=== PATIENT | male | born 1935 | race Caucasian/White ===

== ENCOUNTER → 2017-09-02 07:27 | Outpatient (CLI) | payer MEDICARE, OTHER ==
[~2017-09-02 07:27] MED LIST: BAYER CHEWABLE81 MG PO; CELEBREX200 MG PO; FIBERCON625 MG PO; PLAVIX75 MG PO; VERELAN180 MG PO
== END | disposition home or self-care (01) ==
LOC: D.NM 07:27
DX: C61 Malignant neoplasm of prostate (principal); R97.20 Elevated prostate specific antigen [PSA]

== ENCOUNTER 2017-10-18 10:56 | Outpatient (CLI) | payer MEDICARE, OTHER ==
[~2017-10-18] VITALS: Ht 193 cm; Wt 111.8 kg
--- NOTE | ~2017-10-18 | HEMODYNAMI ---
PATIENT:ROMEL MORAN MEDICAL RECORD: [id number] : 37 LOCATION:[facility] ADMISSION DATE: 10/18/17 Generatedon:10/18/201713:45 Patient name: ROMEL MORAN Patient #: [id number] SSN: [id number] : 1935 Date of study: 10/18/2017 Page: Of Hemodynamic Procedure Report Patient Data Patient Demographics Procedure consent was obtained First Name: ROMEL Gender: Male Last Name: DEAN : 1935 Middle Initial: E Age: 82 year(s) Patient #: [id number] Race: SSN: [id number] Additional ID: [id number] Contact details Address: [facility] [address] State: [place] City: [place] Zip code: [address] Admission Admission Data Admission Date: 10/18/2017 Admission Time: 10:56 Arrival Date: 10/18/2017 Arrival Time: 13:00 Admit Source: Other Insurance Payor: Medicare Height (in.): 76 BSA: 2.42 (m2) Height (cm.): 193.04 BMI: 29.94 (kg/m2) Weight (lbs.): 246 Weight (kg.): 111.58 Lab Results Lab Result Date: 10/18/2017 Lab Result Time: 0:00 Biochemistry Name Units Result Min Max BUN mg/dl 25 --(----)-* 7 18 Creatinine mg/dl 1.1 --(--*-)-- 0.6 1.3 CBC Name Units Result Min Max Hemoglobin g/dl 17 --(---*)-- 13.5 17.5 Procedure Procedure Types Cath Procedure Diagnostic Procedure [facility] w/Coronaries PCI Procedure Coronary Stent Coronary Stent Initial Miscellaneous Procedures Moderate Sedation up to 45 minutes Procedure Description Procedure Date Procedure Date: 10/18/2017 Procedure Start Time: 13:14 Procedure End Time: 13:42 Procedure Staff Name Function Jorge Corona MD Performing Physician Rekha Genao RT Monitor Cha Dae RT Scrub Jolene Alva RN Nurse Procedure Data Cath Procedure Fluoroscopy Diagnostic fluoroscopy Total fluoroscopy Time: 6.8 time: 6.8 min min Diagnostic fluoroscopy Total fluoroscopy dose: 765 dose: 765 mGy mGy Contrast Material Contrast Material Type Amount (ml) Isovue 300 91 Entry Location Entry Primary Successful Side Size Upsize Upsize Entry Closure Regalado ccessful Closure Location (Fr) 1 (Fr) 2 (Fr) Remarks Device Remarks Radial Right 6 Fr Mechanical artery Short Compression Estimated blood loss: 5 ml Diagnostic catheters Device Type Used For End Catheter Placement DIAGNOSTIC Issac 110cm Multi-vessel 5Fr catheter ([id number]) Angiography DIAGNOSTIC Pigtail 5Fr LV Pressure catheter ([id number]) Measurement Procedure Complications No complications Procedure Medications Medication Administration Route Dosage 0.9% NaCl I.V. 100 ml/hr Oxygen NC 2 l/min Lidocaine 2% added to field 20 Heparin Flush Bag added to field 2 bags (1000units/500ml NS) Radial Cocktail added to field 1 syringe (Verapomil 2mg/Nitro 400mcg/Heparin 1500units) Fentanyl I.V. 50 mcg Versed I.V. 1 mg Fentanyl I.V. 50 mcg Versed I.V. 1 mg Heparin Bolus I.V. 36235 units Plavix P.O. 600 mg Hemodynamics Rest BSA: 2.42 (m2) HGB: 17 (g/dl) O2 Consumption: Estimated: 258.7 (ml/min) O2 Consu mption indexed: Estimated:106.9 (ml/min/m) Heart Rate: 51 (bpm) Pressure Samples Time Site Value (mmHg) Purpose Heart Use Rate(bpm) 13:19 LV 133/2,7 Snapshot 68 13:20 AO 134/61(92) Pullback 70 13:20 LV 122/0,10 Pullback 70 13:25 LV 123/1,13 Snapshot 64 Gradients Valve Time Site 1 Site 2 Mean SEP/DFP Peak To Heart Use (mmHg) (sec/min) Peak Rate (mmHg) (bpm) Aortic 13:20 LV AO 0 4 0 70 122/0,10 134/61(92) Calculations Valve P-P Mean Valve Index Valve Source Name Gradient Area Flow (cm2) Aortic 0 0 0 0 Snapshots Pre Cath Intra NCS Post Cath Vital Signs Time Heart Resp SPO2 etCO2 NIBP (mmHg) Rhythm Pain Sedation Rate (ipm) (%) (mmHg) Status Level (bpm) 12:50:37 51 20 95 21.9 152/86(137) NSR 0 (11) 10(A) , No pain 12:55:01 51 15 100 23.4 148/79(133) NSR 0 (11) 10(A) , No pain 12:59:23 53 20 98 0 122/70(92) NSR 0 (11) 10(A) , No pain 13:03:37 53 18 98 0 130/72(91) NSR 0 (11) 10(A) , No pain 13:07:55 54 15 93 0 114/69(80) NSR 0 (11) 10(A) , No pain 13:12:05 57 18 95 0 125/73(88) NSR 0 (11) 9(A) , No pain 13:17:17 55 18 96 12.8 137/65(114) NSR 0 (11) 9(A) , No pain 13:21:39 60 19 98 10.6 113/65(86) NSR 0 (11) 9(A) , No pain 13:25:51 76 16 95 0 119/67(90) NSR 0 (11) 9(A) , No pain 13:30:03 63 16 97 0 118/74(95) NSR 0 (11) 9(A) , No pain 13:34:14 62 16 97 0 131/72(94) NSR 0 (11) 10(A) , No pain 13:38:33 63 16 97 21.9 124/68(94) NSR 0 (11) 10(A) , No pain 13:42:49 64 16 99 21.9 131/69(103) NSR 0 (11) 10(A) , No pain Medications Time Medication Route Dose Verified Delivered Reason Note s Effectiveness by by 12:49:53 0.9% NaCl I.V. 100 Jorge Jolene used for ml/hr Cj Alva RN procedure 12:50:02 Oxygen NC 2 l/min Jorge Jolene Per physician Cj Alva RN 12:50:11 Lidocaine 2% added 20ml Jorge Jorge for local to vial Cj Corona MD anesthetic field 12:50:18 Heparin Flush added 2 bags Jorge Jorge used for Bag to Cj Corona MD procedure (1000units/500ml field NS) 12:50:28 Radial Cocktail added 1 Jorge Jorge for (Verapomil to syringe Cj Corona MD vasodilation 2mg/Nitro field 400mcg/Heparin 1500units) 13:02:48 Fentanyl I.V. 50 mcg Jorge Jolene for sedation Cj Alva RN 13:02:56 Versed I.V. 1 mg Jorge Jolene for sedation Cj Alva RN 13:05:04 Fentanyl I.V. 50 mcg Jorge Jolene for sedation Cj Alva RN 13:20:40 Versed I.V. 1 mg Jorge Jolene for sedation Cj Alva RN 13:33:48 Heparin [place] I.V. 78257 Jorge Jolene for veri fied units Cj Alva RN anticoagulation by 13:42:39 Plavix P.O. 600 mg Jorge Jolene for Cj Alva RN antiplatelet therapy Procedure Log Time Note 12:27:53 Informed consent obtained and on chart 12:28:11 Diagnostic Cath Status : Elective 12:28:34 Cha Counts RT(R) sent for patient. Start room use. 12:28:35 Time tracking: Regular hours 12:28:39 Plan of Care:Hemodynamics will remain stable., Cardiac rhythm will remain stable., Comfort level will be maintained., Respiratory function will remain adequate., Patient/ family verbilizes understanding of procedure., Procedure tolerated without complication., Recovers from procedure without complications.. 12:37:01 Lab Result : BUN 25 mg/dl 12:37:01 Lab Result : Hemoglobin 17 g/dl 12:37:01 Lab Result : Creatinine 1.1 mg/dl 12:43:02 Patient received from Pre/Post Procedure Room to CCL 2 Alert and oriented. Tansferred to table in Supine position. 12:43:03 Warm blankets applied, and sylvia hugger turned on for patient comfort. 12:43:03 Correct patient and procedure confirmed by team. 12:43:05 ECG and BP/O2 sat monitors applied to patient. 12:49:25 Vital chart was started 12:49:53 0.9% NaCl 100 ml/hr I.V. was administered by Jolene Alva RN; used for procedure; 12:50:02 Oxygen 2 l/min NC was administered by Jolene Alva RN; Per physician; 12:50:11 Lidocaine 2% 20ml vial added to field was administered by Jorge Corona MD; for local anesthetic; 12:50:18 Heparin Flush Bag (1000units/500ml NS) 2 bags added to field was administered by Jorge Corona MD; used for procedure; 12:50:28 Radial Cocktail (Verapomil 2mg/Nitro 400mcg/Heparin 1500units) 1 syringe added to field was administered by Jorge Corona MD; for vasodilation; 12:52:03 Baseline sample Acquired. 12:52:07 Rhythm: sinus rhythm 12:52:08 Full Disclosure recording started 12:52:20 H&P Date Dictated: 09/29/2017 Within 30 days and on chart., H&P Addendum completed by physician on day of procedure. (MUST COMPLETE FOR ALL OUTPATIENTS). 12:52:21 Pre-procedure instructions explained to patient. 12:52:22 Pre-op teaching completed and patient verbalized understanding. 12:52:54 Family in waiting room. 12:52:56 Patient NPO since Midnight. 12:53:03 Is the patient allergic to Iodine/contrast media? No. 12:53:04 Was the patient premedicated? No 12:53:59 Is patient on blood thinner?No 12:54:01 Patient diabetic? No. 12:54:03 Previous problem with sedation/anesthesia? No ? 12:54:05 Snore? Yes 12:54:06 Sleep apnea? No 12:54:07 Deviated septum? Yes 12:54:08 Opens mouth fully? Yes 12:54:09 Sticks out tongue? No 12:54:12 Airway obstruction? No ? 12:54:22 Dentures? Yes partials; in tight 12:54:35 Pre procedure: right dorsailis pedis pulse 1+ Palpable, but thready & weak; easily obliterated 12:54:37 Pre procedure: left dorsailis pedis pulse 1+ Palpable, but thready & weak; easily obliterated 12:54:40 Patient pain scale 0/10 ?. 12:54:53 IV patent on arrival in left forearm with 0.9% NaCl at [facility]. 12:54:56 Lab results completed and on chart. 12:55:00 Right Radial & Right Groin area was prepped with chlora-prep and draped in sterile fashion 12:55:01 Alarms reviewed by R. N. 12:55:01 Sharps counted by scrub and verified by R.N. 12:55:02 Sharps counted by scrub and verified by R.N. 12:58:33 Admit Source: Other 12:58:35 Arrival Date: 10/18/2017 1:00:00 PM 12:58:46 Insurance Payor : Medicare 12:59:03 Patient Height : 76 inches 12:59:08 Patient Weight : 246 lbs 13:01:06 Physician arrived 13:01:06 --------ALL STOP TIME OUT------ 13:01:07 Final Timeout: patient, procedure, and site verified with staff and physician. All members of the team are in agreement. 13:01:08 Right Radial & Right Groin site verified by team. 13:01:10 Physical assessment completed. ASA score P 2 - A patient with mild systemic disease as per Jorge Corona MD. 13:01:14 Sedation plan: IV Moderate Sedation Medication:Versed, Fentanyl 13:01:55 Use device set Radial Dx or PCI 13:01:57 ACIST Syringe (28432) opened to sterile field. 13:01:57 Medline Cath Pack ([id number]) opened to sterile field. 13:01:58 Bag Decanter (2002S) opened to sterile field. 13:01:59 SHEATH 6FR Slender ([id number]) opened to sterile field. 13:02:00 DIAGNOSTIC WIRE .035 260cm J wire (764454) opened to sterile field. 13:02:01 ACIST Hand Control (26002) opened to sterile field. 13:02:01 ACIST Manifold (08815) opened to sterile field. 13:02:02 Tegaderm 4 x 4 (1626W) opened to sterile field. 13:02:48 Fentanyl 50 mcg I.V. was administered by Jolene Alva RN; for sedation; 13:02:56 Versed 1 mg I.V. was administered by Jolene Alva RN; for sedation; 13:02:57 Zero performed for pressure channel P1 13:05:04 Fentanyl 50 mcg I.V. was administered by Jolene Alva RN; for sedation; 13:13:21 Procedure started. 13:14:11 Local anesthetic to right radial artery with Lidocaine 2% by Jorge Corona MD.INITIAL ACCESS ONLY 13:14:19 A 6 Fr Short sheath was inserted into the Right Radial artery 13:16:25 A DIAGNOSTIC Issac 110cm 5Fr catheter (781649) was advanced over the wire and used for Multi-vessel Angiography. 13:19:12 LV hemodynamics recorded. 13:19:13 LV gram done using FLETCHER 13:19:16 Injector settings: Ml/sec: 5, Volume: 15, 13:19:29 EF : 55 % 13:20:04 LCA angiography performed. 13:20:06 Injector settings: Ml/sec: 3, Volume: 6, 13:20:40 Versed 1 mg I.V. was administered by Jolene Alva RN; for sedation; 13:22:00 RCA angiography performed. 13:22:03 Injector settings: Ml/sec: 3, Volume: 6, 13:22:48 Catheter removed. 13:23:33 A DIAGNOSTIC Pigtail 5Fr catheter ([id number]) was advanced over the wire and used for LV Pressure Measurement. 13:31:32 Catheter removed. 13:32:29 TUBING High Pressure Extension Tubing (Cj) ([id number]) opened to sterile field. 13:32:30 INFLATOR Merit BasixCompak (IF9441) opened to sterile field. 13:33:17 Proceeding to intervention. 13:33:48 Heparin Bolus 69922 units I.V. was administered by Jolene Alva RN; for anticoagulation; verified by 13:34:19 GUIDE 6FR AR 1.0 catheter ([id number]) opened to sterile field. 13:34:35 BMW 300cm [place] 2 J wire ([id number]) opened to sterile field. 13:34:45 6 Fr ar 1 guide catheter was inserted over the wire 13:34:50 bmw wire advanced. 13:35:47 Wire advanced across lesion. 13:39:15 Inflation Number: 1 A INTEGRITY OTW 3.0 X 15 stent ([id number]) was prepped and advanced across the Mid RCA. The stent was deployed at 14 DEON for 0:10 (min:sec). 13:39:55 Stent catheter was removed intact over wire. 13:40:20 TR BAND Standard ([id number]) opened to sterile field. 13:40:24 Wire removed. 13:40:25 Guide catheter removed. 13:40:43 Sheath removed intact; hemostasis achieved with Mechanical Compression to the Right Radial artery. 13:40:45 Procedure ended.(Physican Out) 13:41:09 Fluoroscopy time 06.80 minutes. 13:41:14 Fluoroscopy dose: 765 mGy 13:41:14 Flurop Dose total: 765 13:41:22 Contrast amount:Isovue 300 91ml. 13:41:24 Sharps counted by scrub and verified by R.N. 13:41:30 TR band inflated with 10cc of air. 13:41:31 Insertion/operative site no bleeding no hematoma. 13:41:41 Post right radial artery:stable 13:41:42 Post Procedure Pulses reassessed and unchanged 13:41:45 Post procedure rhythm: unchanged. 13:41:48 Estimated blood loss: 5 ml 13:41:50 Post procedure instruction explained to patient.Patient verbalizes understanding. 13:41:50 Patient needs reinforcement of post procedure teaching. 13:42:08 Procedure type changed to Cath procedure, Diagnostic procedure, LHC, LHC w/Coronaries, PCI procedure, Coronary Stent, Coronary Stent Initial, Miscellaneous Procedures, Moderate Sedation up to 45 minutes 13:42:14 Procedure and supply charges have been captured, reviewed, submitted and are correct. 13:42:18 Procedure Complication : No complications 13:42:20 Vital chart was stopped 13:42:21 See physician's report for complete and final results. 13:42:29 Report given to Pre/Post Procedure Room. 13:42:32 Patient transfered to Pre/Post Procedure Room with Stretcher. 13:42:34 Procedure ended. 13:42:34 Full Disclosure recording stopped 13:42:39 Plavix 600 mg P.O. was administered by Jolene Alva RN; for antiplatelet therapy; 13:42:49 ACC-PCI Only Patient was given prescriptions, or instructed by Jorge Corona MD to start/continue the following medications upon discharge: Plavix 13:42:51 End room use (Document Last) Intervention Summary Intervention Notes Time ActionType Lesion and Equipment Action# Pressure Duration Attributes Used 13:39:15 Place stent Mid RCA INTEGRITY 1 14 00:10 OTW 3.0 X 15 stent ([id number]) Device Usage Item Name Manufacture Quantity Catalog Hospital Part Current Minimal Lot# / Number Charge Number Stock Stock Serial# Code ACIST Acist 1 50736 773543 465640 255203 20 Syringe Medical (25151) Systems Inc Medline Cath Cardinal 1 [id number] 449028 66700 458353 5 Pack Health ([id number]) Bag Decanter Microtek 1 2001S 603492 90488 747587 5 () Medical Inc. SHEATH 6FR Terumo 1 [id number] 401962 502755 551262 40 Slender ([id number]) DIAGNOSTIC St Alex 1 441802 374500 439901 725356 30 WIRE .035 260cm J wire (318583) ACIST Hand Acist 1 19846 158244 749473 932799 5 Control Medical (73988) Systems Inc ACIST Acist 1 68473 853094 735827 137362 5 Manifold Medical (74223) Systems Inc Tegaderm 4 x 3M 1 1626W 420179 618080 318577 5 4 (1626W) DIAGNOSTIC Terumo 1 40-5023 353403 475843 524316 5 Issac 110cm 5Fr catheter (554677) DIAGNOSTIC Cardinal 1 [id number] 215257 470475 197345 5 Pigtail 5Fr Health catheter (718125Z) TUBING High Merit 1 [id number] 525679 85737 247219 10 Pressure Medical Extension Tubing (Corona) ([id number]) INFLATOR Merit 1 DG7815 835731 923366 363931 15 [facility] Medical BasixCompak (NR6363) GUIDE 6FR AR Medtronic 1 [id number] 219768 35148 934583 1 1.0 catheter ([id number]) BMW 300cm Giraldo 1 [id number] 789727 509295 532631 5 [place] 2 Vascular J wire (1011071R) INTEGRITY Medtronic 1 [id number] 863152 445935 3 [id number] OTW 3.0 X 15 stent ([id number]) TR BAND Terumo 1 [id number] 589354 002301 734592 40 Standard ([id number]) Signature Audit [place] Stage Time Signature Unsigned Intra-Procedure 10/18/2017 Rekha Genao 1:45:49 PM RT(R) Signatures Monitor : Rekha Genao RT Signature : Date : Time : [address] [place] [address]
[2017-10-18] MEDS ORDERED: BAYER CHEWABLE81 MG PO (11:13)
[2017-10-18] MEDS ORDERED: VERELAN180 MG PO (11:17)
[2017-10-18] MEDS ORDERED: CELEBREX200 MG PO (11:17)
[2017-10-18] MEDS ORDERED: FIBERCON625 MG PO (11:18)
[2017-10-18 11:28] VITALS: BP 143/72; Ht 193 cm; Wt 111.8 kg
[2017-10-18 11:43] LABS: BASOPHILS 0.7 % (0-2); EOSINOPHILS 2.7 % (0-7); HEMATOCRIT 49.1 % (42.0-54.0); IMMATURE GRANULOCYTES 0.1 % (0-5); MCH 31.2 pg (26.0-34.0); MCHC 34.6 g/dL (31.0-37.0); MCV 90.1 fL (80.0-100.0); MEAN PLATELET VOLUME 10.9 fL (7.4-10.4); MONOCYTES 9.3 % (2-11); NEUTROPHILS 59.2 % (40-80); PLATELET COUNT 226 10x3/uL (130-400); RBC 5.45 10x6/uL (4.20-6.10); RDW 13.3 % (11.5-14.5); WBC 8.1 10x3/uL (4.8-10.8)
[2017-10-18 11:53] LABS: ANION GAP 11.1 mmol/L (8-16); CALCIUM 8.7 mg/dL (8.5-10.1); CARBON DIOXIDE 27.8 mmol/L (21.0-32.0); CREATININE - SERUM 1.1 mg/dL (0.6-1.3); POTASSIUM - SERUM 4.9 mmol/L (3.5-5.1)
[2017-10-18] MEDS ORDERED: PLAVIX75 MG PO (15:25)
== END 2017-10-18 18:08 | disposition home or self-care (01) ==
LOC: D.CATH 10:56
PROVIDERS: Internal Medicine Cardiovascular Disease
DX: I25.119 Atherosclerotic heart disease of native coronary artery with unspecified angina pectoris (principal); Z01.812 Encounter for preprocedural laboratory examination

== ENCOUNTER → 2018-08-21 08:16 | Outpatient (CLI) | payer MEDICARE, OTHER | END | disposition home or self-care (01) | LOC: D.MRI 08:16 | DX: M54.16 Radiculopathy, lumbar region (principal) ==

== ENCOUNTER → 2018-10-05 10:37 | Outpatient (CLI) | payer MEDICARE ==
[2018-10-05 11:11] LABS: BASOPHILS 0.9 % (0-2); EOSINOPHILS 5.7 % (0-7); HEMATOCRIT 46.1 % (42.0-54.0); IMMATURE GRANULOCYTES 0.2 % (0-5); LYMPHOCYTES 25.4 % (15-50); MCHC 34.7 g/dL (31.0-37.0); MCV 89.3 fL (80.0-100.0); MEAN PLATELET VOLUME 11.3 fL (7.4-10.4); MONOCYTES 11.8 % (2-11); PLATELET COUNT 199 10x3/uL (130-400); RBC 5.16 10x6/uL (4.20-6.10); RDW 12.9 % (11.5-14.5); WBC 5.6 10x3/uL (4.8-10.8)
[2018-10-05 11:33] LABS: ALBUMIN 3.5 g/dL (3.4-5.0); ANION GAP 13.6 mmol/L (8-16); BILIRUBIN - TOTAL 0.6 mg/dL (0.2-1.3); CARBON DIOXIDE 27.1 mmol/L (21.0-32.0); CREATININE - SERUM 1.1 mg/dL (0.6-1.3); POTASSIUM - SERUM 4.7 mmol/L (3.5-5.1); PROTEIN - SERUM 7.3 g/dL (6.4-8.2); T4 THYROXIN - FREE 0.9 ng/dL (0.76-1.46); THYROID STIMULATING HORMONE 2.93 uIU/mL (0.36-3.74)
[2018-10-05 13:00] LABS: ERYTHROCYTE SEDIMENTATION RATE 2 mm/hr (0-20)
[2018-10-06 08:19] LABS: FOLATE (FOLIC ACID) - SERUM 12.4 ng/mL (>3.0)
[2018-10-06 14:26] LABS: ANA REFLEX - DIRECT Negative (Negative)
== END | disposition home or self-care (01) ==
LOC: D.LAB 10:37
PROVIDERS: Psychiatry & Neurology Neurology
DX: G62.9 Polyneuropathy, unspecified (principal); G57.21 Lesion of femoral nerve, right lower limb; R20.2 Paresthesia of skin

== ENCOUNTER → 2019-05-18 10:20 | Outpatient (CLI) | payer MEDICARE, BC ==
[2019-05-18 11:36] LABS: CREATINE KINASE 483 UL (21-232)
[2019-05-18 13:26] LABS: CKMB 18.6 U/L (0.0-3.6)
[2019-06-06 13:10] LABS: ACR - BINDING 0.12 nmol/L (0.00-0.24); ACR - BLOCKING 15 % (0-25); ACR - MODULATING <12 % (0-20)
== END | disposition home or self-care (01) ==
LOC: D.LAB 10:20
PROVIDERS: ATTEND Psychiatry & Neurology Neurology
DX: M62.81 Muscle weakness (generalized) (principal)

== ENCOUNTER → 2019-07-11 09:40 | Outpatient (CLI) | payer MEDICARE, BC ==
[~2019-07-11 09:40] MED LIST changes: +COZAAR50 MG PO; +PRAVASTATIN SOD10 MG PO; +VITAMIN B-12500 MCG PO
== END | disposition home or self-care (01) ==
LOC: D.HCCARDIO 09:40
PROVIDERS: ATTEND Internal Medicine Cardiovascular Disease
DX: I25.10 Atherosclerotic heart disease of native coronary artery without angina pectoris (principal)

== ENCOUNTER 2019-07-17 10:35 | Outpatient (CLI) | payer MEDICARE, BC ==
[~2019-07-17] VITALS: Ht 193 cm; Wt 113.6 kg
--- NOTE | ~2019-07-17 | HEMODYNAMI ---
PATIENT:ROMEL MORAN MEDICAL RECORD: [id number] : 37 LOCATION:[facility] ADMISSION DATE: 07/17/19 Generatedon:07/17/201914:12 Patient name: ROMEL MORAN Patient #: [id number] SSN: [id number] : 1935 Date of study: 07/17/2019 Page: Of Hemodynamic Procedure Report Patient Data Patient Demographics Procedure consent was obtained First Name: ROMEL Gender: Male Last Name: DEAN : 1935 Middle Initial: E Age: 84 year(s) Patient #: [id number] Race: SSN: [id number] Additional ID: [id number] Contact details Address: [facility] [address] State: [place] City: [place] Zip code: [address] Past Medical History Allergies Allergen Reaction Date Comments Reported Other allergy 07/17/2019 mycins Admission Admission Data Admission Date: 07/17/2019 Admission Time: 10:35 Arrival Date: 07/17/2019 Arrival Time: 0:00 Admit Source: Other Insurance Payor: Medicare, Private health insurance [facility] #: [id number] Height (in.): 75 BSA: 2.41 (m2) Height (cm.): 190.5 BMI: 31.25 (kg/m2) Weight (lbs.): 250 Weight (kg.): 113.4 Lab Results Lab Result Date: 07/17/2019 Lab Result Time: 0:00 Biochemistry Name Units Result Min Max BUN mg/dl 25 --(----)-* 7 18 Creatinine mg/dl 0.9 --(-*--)-- 0.6 1.3 CBC Name Units Result Min Max Hemoglobin g/dl 15.7 --(--*-)-- 13.5 17.5 Procedure Procedure Types Cath Procedure Diagnostic Procedure C LH w/Coronaries Sedation Charges Moderate Sedation up to 15 minutes PCI Procedure Coronary Stent Coronary Stent Initial Procedure Description Procedure Date Procedure Date: 07/17/2019 Procedure Start Time: 13:33 Procedure End Time: 14:09 Procedure Staff Name Function Jorge Corona MD Performing Physician Izabella Griffith RT Monitor Kalpana Leal RN Nurse Rekha Genao RT Scrub Indication Chest pain Abnormal nuclear perfusion test Procedure Data Cath Procedure Fluoroscopy Diagnostic fluoroscopy Total fluoroscopy Time: 7 time: 7 min min Diagnostic fluoroscopy Total fluoroscopy dose: dose: 1288 mGy 1288 mGy Contrast Material Contrast Material Type Amount (ml) Isovue 300 159 Entry Location Entry Primary Successful Side Size Upsize Upsize Entry Closure Succes sful Closure Location (Fr) 1 (Fr) 2 (Fr) Remarks Device Remarks Femoral Right 5 Fr 6 Fr Exoseal artery Short Estimated blood loss: 10 ml Diagnostic catheters Device Type Used For End Catheter Placement MULTIPACK JL 4.0 5Fr Procedure catheter MULTIPACK 3DRC 5Fr Procedure catheter MULTIPACK Pigtail 5 Fr Ventriculography catheter Procedure Complications No complications Procedure Medications Medication Administration Route Dosage 0.9% NaCl I.V. 100 ml/hr Oxygen etCO2 Nasal cannula 2 l/min Lidocaine 2% added to field 20 Heparin Flush Bag added to field 2 bags (1000units/500ml NS) Versed I.V. 2 mg Fentanyl I.V. 50 mcg Heparin Bolus I.V. 09377 units Plavix P.O. 600 mg Hemodynamics Rest BSA: 2.41 (m2) HGB: 15.7 (g/dl) O2 Consumption: Estimated: 256.78 (ml/min) O2 Co nsumption indexed: Estimated:106.55 (ml/min/m) Heart Rate: 51 (bpm) Pressure Samples Time Site Value (mmHg) Purpose Heart Use Rate(bpm) 13:43 LV 160/7,24 Snapshot 53 Gradients Valve Time Site Site Mean SEP/DFP Peak To Heart Use 1 2 (mmHg) (sec/min) Peak Rate (mmHg) (bpm) Aortic 13:44 LV AO 54 Snapshots Pre Cath Intra NCS Post Cath Vital Signs Time Heart Resp SPO2 etCO2 NIBP (mmHg) Rhythm Pain Sedation Rate (ipm) (%) (mmHg) Status Level (bpm) 13:16:56 51 11 98 36.4 148/79(133) SB 0 (11) 10(A) , No pain 13:21:16 51 10 98 35.8 146/78(125) SB 0 (11) 10(A) , No pain 13:25:36 53 10 96 35 141/70(115) SB 0 (11) 10(A) , No pain 13:29:54 50 12 97 39.1 140/72(102) SB 0 (11) 10(A) , No pain 13:34:16 48 15 98 12 158/61(101) SB 0 (11) 9(A) , No pain 13:38:40 49 12 98 11.2 141/70(101) SB 0 (11) 10(A) , No pain 13:42:58 53 13 99 11.2 137/72(120) SB 0 (11) 9(A) , No pain 13:47:57 52 13 99 11.2 Measuring SB 0 (11) 9(A) , No pain 13:48:00 52 13 99 11.2 140/73(110) SB 0 (11) 9(A) , No pain 13:52:19 52 12 99 27 130/70(108) SB 0 (11) 9(A) , No pain 13:56:33 56 16 100 12.7 144/74(110) SB 0 (11) 9(A) , No pain 14:01:32 54 19 100 9.7 Measuring SB 0 (11) 9(A) , No pain 14:01:39 53 17 100 9.7 150/75(117) SB 0 (11) 9(A) , No pain 14:05:59 53 18 100 20.3 138/76(86) SB 0 (11) 10(A) , No pain Medications Time Medication Route Dose Verified Delivered Reason Notes Effectiveness by by 13:30:24 0.9% NaCl I.V. 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 2 mg Jorge Kalpana for sedation Cj Leal RN 13:30:54 Fentanyl I.V. 50 Jorge Kalpana for sedation mcg Cj Leal RN 13:49:31 Heparin Bolus I.V. 15498 Jorge Kalpana for verif ied units Cj Leal anticoagulation with Dr. SHAHIDA Corona 14:06:30 Plavix P.O. 600 Jorge Kalpana for mg Cj Leal antiplatelet RN therapy Procedure Log Time Note 12:55:09 Informed consent obtained and on chart 12:56:41 Admit Source: Other 12:56:44 Arrival Date: 07/17/2019 12:00:00 AM 12:57:17 Insurance Payor : Private health insurance, Medicare 12:57:48 Patient Height : 75 inches 12:58:04 Patient Weight : 250 lbs 13:01:01 Lab Result : Hemoglobin 15.7 g/dl 13:01:01 Lab Result : Creatinine 0.9 mg/dl 13:01:01 Lab Result : BUN 25 mg/dl 13:01:32 Indication : Chest pain 13:01:49 Indication : Abnormal nuclear perfusion test 13:02:06 ACC Patient presents with Unstable Angina CCS Anginal Class 3--Marked limitation of physical activity, angina occurs with ordinary activity.. 13:02:10 Procedure Status Elective Heart Cath (OP). 13:02:12 Rekha Genao RT(R) sent for patient. Start room use. 13:02:13 Time tracking: Regular hours (M-F 7:00 - 5:00) 13:02:19 Plan of Care:Hemodynamics will remain stable., Cardiac rhythm will remain stable., Comfort level will be maintained., Respiratory function will remain adequate., Patient/ family verbilizes understanding of procedure., Procedure tolerated without complication., Recovers from procedure without complications.. 13:02:23 Patient received from Pre/Post Procedure Room to CCL 2 Alert and oriented. Tansferred to table in Supine position. 13:02:35 H&P Date Dictated: 06/19/2019 Within 30 days and on chart.. 13:02:36 Pre-procedure instructions explained to patient. 13:02:49 2) 60-89 Mildly reduced kidney function, and other findings (as for stage 1) point to kidney disease. 13:03:23 Maximum allowable contrast dose (3.7 X eGFR X 0.75)235 ml. 13:15:44 Warm blankets applied, and sylvia hugger turned on for patient comfort. 13:15:44 Correct patient and procedure confirmed by team. 13:15:45 ECG and BP/O2 sat monitors applied to patient. 13:15:45 Vital chart was started 13:15:48 Baseline sample Acquired. 13:15:51 Full Disclosure recording started 13:15:55 Pre-op teaching completed and patient verbalized understanding. 13:15:57 Family in waiting room. 13:16:00 Patient NPO since Midnight. 13:16:16 Patient allergic to Other allergymycins 13:16:19 Is the patient allergic to Iodine/contrast media? No. 13:16:21 Is patient on blood thinner?Yes 13:16:27 ACC The patient was administered the following blood thiners within the last 24 hours: ACCAspirin 13:16:31 Bleeding risk .6%. 13:16:34 Patient diabetic? No. 13:16:38 Snore? Yes 13:16:39 Sleep apnea? No 13:16:45 Dentures? No ? 13:17:00 IV patent on arrival in left forearm with 0.9% NaCl at [facility]. 13:17:03 Lab results completed and on chart. 13:17:56 Stress Test: yes; abnormal inferior wall 13:18:30 Risk of Mortality: .6 13:18:33 Risk of blood transfusion: .6 13:18:37 Risk of MACK: 1.8 13:18:43 Right groin area was prepped with chlora-prep and draped in sterile fashion 13:18:44 Alarms reviewed by R. N. 13:18:44 Sharps counted by scrub and verified by R.N. 13:18:46 Physician arrived 13:18:47 --------ALL STOP TIME OUT------ 13:19:07 Final Timeout: patient, procedure, and site verified with staff and physician. All members of the team are in agreement. 13:19:09 Right groin site verified by team. 13:19:14 Fire Safety Assessment: A--An alcohol-based skin anteseptic being used preoperatively., C--Open oxygen or nitrous oxide is being used., D--An ESU, laser, or fiber-optic light is being used. 13:19:18 Physical assessment completed. ASA score P 2 - A patient with mild systemic disease as per Jorge Corona MD. 13:19:24 Use device set Femoral Dx 13:19:25 ACIST Syringe (31308) opened to sterile field. 13:19:26 Bag Decanter (2002S) opened to sterile field. 13:19:26 Medline Cath Pack ([id number]) opened to sterile field. 13:19:27 ACIST Hand Control (99233) opened to sterile field. 13:19:28 ACIST Manifold (70633) opened to sterile field. 13:19:28 DIAGNOSTIC Multipack 5Fr catheter set (QA0618) opened to sterile field. 13:19:29 Tegaderm 4 x 4 (1626W) opened to sterile field. 13:19:34 SHEATH 5FR Minetto (PKY018) opened to sterile field. 13:19:34 EMERALD Guide Wire (515-594) opened to sterile field. 13:30:24 0.9% NaCl 100 ml/hr I.V. was administered by Kalpana Leal RN; used for procedure; Verbal order read back and verified. 13:30:30 Oxygen 2 l/min etCO2 Nasal cannula was administered by Kalpana Leal RN; used for procedure; Verbal order read back and verified. 13:30:35 Lidocaine 2% 20ml vial added to field was administered by Jorge Corona MD; for local anesthetic; Verbal order read back and verified. 13:30:39 Heparin Flush Bag (1000units/500ml NS) 2 bags added to field was administered by Jorge Corona MD; used for procedure; Verbal order read back and verified. 13:30:48 Versed 2 mg I.V. was administered by Kalpana Leal RN; for sedation; Verbal order read back and verified. 13:30:54 Fentanyl 50 mcg I.V. was administered by Kalpana Leal RN; for sedation; Verbal order read back and verified. 13:31:36 Zero performed for pressure channel P1 13:33:26 Procedure started. 13:33:37 Local anesthetic to right femoral artery with Lidocaine 2% by Jorge Corona MD.INITIAL ACCESS ONLY 13:33:45 A 5 Fr sheath was inserted into the Right Femoral artery 13:33:50 J wire advanced. 13:37:08 A MULTIPACK JL 4.0 5Fr catheter was advanced over the wire and used for Procedure. 13:37:16 LCA angiography performed. 13:40:43 Catheter removed. 13:40:55 A MULTIPACK 3DRC 5Fr catheter was advanced over the wire and used for Procedure. 13:41:56 ACCDominant side:Right 13:42:07 RCA angiography performed. 13:42:09 Catheter removed. 13:42:17 A MULTIPACK Pigtail 5 Fr catheter was advanced over the wire and used for Ventriculography. 13:42:26 LV gram done using FLETCHER 13:43:56 EF : 40 % 13:45:04 Catheter removed. 13:45:32 SHEATH 6FR Minetto (WXS538) opened to sterile field. 13:45:48 INFLATOR Merit BasixCompak (OH3003) opened to sterile field. 13:45:53 TUBING High Pressure Extension Tubing (Cj) ([id number]) opened to sterile field. 13:47:10 GUIDE 6FR XBLAD 3.5 catheter ([id number]) opened to sterile field. 13:47:11 BMW 300cm [place] 2 J wire ([id number]) opened to sterile field. 13:47:19 Proceeding to intervention. 13:47:31 PCI Cath status Elective 13:47:39 Sheath upsized to a 6 Fr Short. 13:47:51 ACC Pre-intervention ADRIANA Flow is 3. 13:48:05 Pre PCI Site: [place] mLAD has 90% stenosis. 13:48:11 6 Fr xblad guide catheter was inserted over the wire 13:48:21 bmw wire advanced. 13:49:31 Heparin Bolus 13806 units I.V. was administered by Kalpana Leal RN; for anticoagulation; verified with Dr. Corona Verbal order read back and verified. 13:52:25 Inflate balloon Inflation number: 1 A EMERGE OTW 2.5 x 15 balloon ([id number]) was prepped and advanced across the Mid LAD , then inflated to 14 DEON for 0:19 (min:sec) . 13:54:30 Balloon removed over the wire. 13:56:29 Place stent Inflation Number: 2 A INTEGRITY OTW 3.0 X 12 stent ([id number]) was prepped and advanced across the Mid LAD 95. The stent was deployed at 12 DEON for 0:12 (min:sec) 0. 13:57:22 Stent catheter was removed intact over wire. 14:03:16 Place stent Inflation Number: 3 A INTEGRITY OTW 2.5 X 12 stent ([id number]) was prepped and advanced across the Mid LAD 95. The stent was deployed at 12 DEON for 0:08 (min:sec) 0. 14:04:53 Wire removed. 14:04:54 Guide catheter removed. 14:04:57 EXOSEAL 6Fr (EX600) opened to sterile field. 14:05:12 Sheath removed intact; hemostasis achieved with Exoseal to the Right Femoral artery. 14:05:16 Procedure ended.(Physican Out) 14:05:49 Fluoroscopy time 07.00 minutes. 14:05:55 Flurop Dose total: 1288 14:05:55 Fluoroscopy dose: 1288 mGy 14:06:03 Dose Area Product 71123 mGy/cm. 14:06:08 Contrast amount:Isovue 300 159ml. 14:06:11 Maximum allowable dose exceeded? No. 14:06:12 Sharps counted by scrub and verified by R.N. 14:06:28 Insertion/operative site no bleeding no hematoma. 14:06:30 Plavix 600 mg P.O. was administered by Kalpana Leal RN; for antiplatelet therapy; Verbal order read back and verified. 14:06:33 Post right femoral artery:stable 14:06:37 Post Procedure Pulses reassessed and unchanged 14:06:42 Post-procedure physical assessment completed. ASA score P 3 - A patient with severe systemic disease as per Jorge Corona MD. 14:06:47 Post procedure rhythm: unchanged. 14:06:50 Estimated blood loss: 10 ml 14:06:57 Post procedure instruction explained to patient.Patient verbalizes understanding. 14:07:22 Procedure type changed to Cath procedure, Diagnostic procedure, LHC, [facility] w/Coronaries, Sedation Charges, Moderate Sedation up to 15 minutes, PCI procedure, Coronary Stent, Coronary Stent Initial 14:07:25 Procedure and supply charges have been captured, reviewed, submitted and are correct. 14:08:55 Procedure Complication : No complications 14:09:18 Vital chart was stopped 14:09:22 [facility] Findings: MVD- PCI performed (see procedure note) 14:09:27 Operative report dictated upon procedure completion. 14:09:28 See physician's report for complete and final results. 14:09:30 Report given to Pre/Post Procedure Room. 14:09:33 Patient transfered to Pre/Post Procedure Room with Stretcher. 14:09:36 Procedure ended. 14:09:36 Full Disclosure recording stopped 14:09:49 ACC-PCI Only Patient was given prescriptions, or instructed by Jorge Corona MD to start/continue the following medications upon discharge: Plavix 14:09:50 End room use (Document Last) 14:10:15 End room use (Document Last) 14:11:01 ACT drawn and resulted at >400 seconds. (normal therapeutic range 180-240 seconds). 14:11:29 End room use (Document Last) Intervention Summary Intervention Notes Time ActionType Lesion and Equipment Action# Pressure Duration Attributes Used 13:52:25 Inflate Mid LAD EMERGE OTW 1 14 00:19 balloon 2.5 x 15 balloon ([id number]) 13:56:29 Place stent Mid LAD INTEGRITY 2 12 00:12 OTW 3.0 X 12 stent ([id number]) 14:03:16 Place stent Mid LAD INTEGRITY 3 12 00:08 OTW 2.5 X 12 stent ([id number]) Device Usage Item Name Manufacture Quantity Catalog Number Hospital Part Current Min imal Lot# / Charge Number Stock Stock Serial# Code ACIST Acist 1 42672 703830 179333 006643 20 Syringe Medical (71475) Systems Inc Bag Decanter Microtek 1 2001S 101832 16628 906341 5 (2001S) Medical Inc. Medline Cath Medline 1 [id number] 061774 01641 298005 5 Pack ([id number]) ACIST Hand Acist 1 37415 124116 633518 149108 5 Control Medical (83850) Systems Inc ACIST Acist 1 63940 072627 245133 682425 5 Manifold Medical (70659) Systems Inc DIAGNOSTIC Cardinal 1 ES6111 969302 29552 831000 30 [facility] 5Fr catheter set (VN5447) Tegaderm 4 x 3M 1 1626W 341361 278382 008876 5 4 (1626W) SHEATH 5FR Terumo 1 CEG766 087322 195190 061021 5 Minetto (EPS594) EMERALD Cardinal 1 758-744 917574 819178 526559 5 Guide Wire Health (502455) MULTIPACK JL Cardinal 1 429950 5 4.0 5Fr Health catheter MULTIPACK Cardinal 1 552449 5 3DRC 5Fr Health catheter MULTIPACK Cardinal 1 510141 5 Pigtail 5 Fr Health catheter SHEATH 6FR Terumo 1 OOE566 128465 106656 943772 40 Minetto (CDH459) INFLATOR Merit 1 PZ4491 270128 774802 979842 15 Merit Medical BasixCompak (VN9580) TUBING High Merit 1 [id number] 454441 21104 013041 10 Pressure Medical Extension Tubing (Corona) (FL8831H) GUIDE 6FR Cardinal 1 [id number] 239883 032283 778639 10 XBLAD 3.5 Health catheter (60675924) BMW 300cm Giraldo 1 [id number] 627016 490243 259727 5 [place] 2 Vascular J wire (5500834P) EMERGE OTW [place] 1 [id number] 418742 806146 323003 5 [id number] 2.5 x 15 Scientific balloon ([id number]) INTEGRITY Medtronic 1 [id number] 887394 752391 686691 8 [id number] OTW 3.0 X 12 stent ([id number]) INTEGRITY Medtronic 1 [id number] 468111 108804 539797 3 [id number] OTW 2.5 X 12 stent ([id number]) EXOSEAL 6Fr Cardinal 1 EX600 385993 106271 214507 10 (EX600) Health Signature Audit [place] Stage Time Signature Unsigned Intra-Procedure 07/17/2019 Izabella Griffith 2:10:15 PM RT(R) Intra-Procedure 07/17/2019 Kalpana Leal 2:11:29 PM RN Intra-Procedure 07/17/2019 Jorge Corona MD 2:12:04 PM Signatures Performing Physician : Signature : Jorge Corona MD Date : Time : Monitor : Izabella Griffith Signature : RT Date : Time : Nurse : Kalpana Elvis RN Signature : Date : Time : [address] [place] [address]
[~2019-07-17 10:35] MED LIST changes: -COZAAR50 MG PO; -PRAVASTATIN SOD10 MG PO; -VITAMIN B-12500 MCG PO
[2019-07-17] MEDS ORDERED: COZAAR50 MG PO (11:04)
[2019-07-17] MEDS ORDERED: FIBERCON625 MG PO (11:05)
[2019-07-17] MEDS ORDERED: VITAMIN B-12500 MCG PO (11:05)
[2019-07-17 11:21] VITALS: BP 133/71; Ht 193 cm; Wt 113.6 kg
[2019-07-17 11:29] LABS: BASOPHILS 0.7 % (0-2); HEMATOCRIT 46.5 % (42.0-54.0); HEMOGLOBIN 15.7 g/dL (13.5-17.5); IMMATURE GRANULOCYTES 0.6 % (0-5); LYMPHOCYTES 23.4 % (15-50); MCH 31.2 pg (26.0-34.0); MCHC 33.8 g/dL (31.0-37.0); MCV 92.3 fL (80.0-100.0); MEAN PLATELET VOLUME 11.3 fL (7.4-10.4); MONOCYTES 12.2 % (2-11); NEUTROPHILS 59.1 % (40-80); PLATELET COUNT 172 10x3/uL (130-400); RBC 5.04 10x6/uL (4.20-6.10); RDW 13.7 % (11.5-14.5); WBC 6.7 10x3/uL (4.8-10.8)
[2019-07-17 11:51] LABS: ALT (SGPT) 40 U/L (10-68); CALC OSMOLALITY 279 mosm/kg (275-300); CALCIUM 8.8 mg/dL (8.5-10.1); CARBON DIOXIDE 24.5 mmol/L (21.0-32.0); CHLORIDE - SERUM 106 mmol/L (98-107); CHOL - HDL RATIO 5.1 ratio (2.3-4.9); CHOLESTEROL, TOTAL 183 mg/dL (0-200); CREATININE - SERUM 0.9 mg/dL (0.6-1.3); GLUCOSE 90 mg/dL (74-106); HDL CHOLESTEROL 36 mg/dL (32-96); LDL CHOLESTEROL 109 mg/dL (0-100); POTASSIUM - SERUM 5.2 mmol/L (3.5-5.1); SODIUM 138 mmol/L (136-145); TRIGLYCERIDE 193 mg/dL (30-200); UREA NITROGEN 25 mg/dL (7-18); eGFR NON AFRICAN AMERICAN 85 mL/min (90-120)
--- NOTE | 2019-07-17 14:25 | NUR ---
PT ARRIVED BY STRETCHER. PLACED ON MONITORS. ASSESSMENT COMLETED. FAMILY AT BEDSIDE AND DR. MICHAUD SPOKE WITH FAMILY. VSS.
[2019-07-17] MEDS ORDERED: PLAVIX75 MG PO (14:34)
--- NOTE | 2019-07-17 14:40 | NUR ---
FAMILY AT BEDSIDE. PT RESTING COMFORTABLY. VSS. RIGHT GROIN DRESSING C/D/I. NO S/S OF HEMATOMA NOTED. CALL LIGHT WITHIN REACH.
--- NOTE | 2019-07-17 15:10 | NUR ---
PT IN SUPINE POSITION. RIGHT GROIN DRESSING C/D/I. NO S/S OF HEMATOMA NOTED. VSS. RIGHT PEDAL PULSE PALPABLE. CALL LIGHT WITHIN REACH. FAMILY AT BEDSIDE.
--- NOTE | 2019-07-17 15:40 | NUR ---
PT RESTING COMFORTABLY. VSS. RIGHT GROIN DRESSING C/D/I. NO S/S OF HEMATOMA NOTED. CALL LIGHT WITHIN REACH. VSS.
--- NOTE | 2019-07-17 16:30 | NUR ---
PT VOIDED APPROX 900cc OF URINE IN URINAL WITHOUT DIFFICULTY. CLEAR YELLOW URINE NOTED. RIGHT GROIN DRESSING C/D/I. NO S/S OF HEMATOMA NOTED. CALL LIGHT WITHIN REACH. FAMILY AT BEDSIDE.
--- NOTE | 2019-07-17 17:00 | NUR ---
HEAD OF BED INC TO 30 DEGREES. TOLERATED WELL. RIGHT GROIN DRESSING C/D/I. NO S/S OF HEMATOMA NOTED. SET UP WITH SANDWICH TRAY AND DRINK. FAMILY AT BEDSIDE TO ASSIST. VSS.
--- NOTE | 2019-07-17 17:40 | NUR ---
RIGHT GROIN DRESSING C/D/I. NO S/S OF HEMATOMA NOTED. PIV D/C'D WITH CATH TIP INTACT. PT TOLERATED WELL. PT INSTRUCTED TO GET UP AND DRESSED. FAMILY AT BEDSIDE TO ASSIST.
--- NOTE | 2019-07-17 18:00 | NUR ---
DISCUSSED DISCHARGE INSTRUCTIONS WITH PT AND PT'S FAMILY THEY VOICED UNDERSTANDING. RIGHT GROIN DRESSING C/D/I. NO S/S OF HEMATOMA NOTED.
--- NOTE | 2019-07-17 18:15 | NUR ---
PT TAKEN OUT TO VEHICLE BY WHEELCHAIR. STOPPED AT RESTROOM AND VOIDED WITHOUT DIFFICULTY. NO S/S OF DISTRESS NOTED. ALL BELONGINGS AND PAPERWORK IN HAND.
== END 2019-07-17 18:15 | disposition home or self-care (01) ==
LOC: D.CATH 10:35
PROVIDERS: ATTEND Internal Medicine Cardiovascular Disease
DX: I25.110 Atherosclerotic heart disease of native coronary artery with unstable angina pectoris (principal); R94.30 Abnormal result of cardiovascular function study, unspecified; R06.02 Shortness of breath

== ENCOUNTER 2019-07-22 14:47 | Observation (INO) | payer MEDICARE, BC ==
[~2019-07-22] VITALS: Ht 193 cm; Wt 113.4 kg
--- NOTE | ~2019-07-22 | HEMODYNAMI ---
PATIENT:ROMEL MORAN MEDICAL RECORD: [id number] : 37 [facility]ATION[facility].[address] [id number] ADMISSION DATE: 07/22/19 Generatedon:07/23/20199:01 Patient name: ROMEL MORAN Patient #: [id number] SSN: [id number] : 1935 Date of study: 07/23/2019 Page: Of Hemodynamic Procedure Report Patient Data Patient Demographics Procedure consent was obtained First Name: ROMEL Gender: Male Last Name: DEAN : 1935 Middle Initial: E Age: 84 year(s) Patient #: [id number] Race: SSN: [id number] Additional ID: [id number] Contact details Address: [facility] [address] State: [place] City: [place] Zip code: [address] Past Medical History Allergies Allergen Reaction Date Comments Reported Other allergy 07/17/2019 mycins Other allergy 07/23/2019 NICIAN Admission Admission Data Admission Date: 07/22/2019 Admission Time: 15:59 Arrival Date: 07/22/2019 Arrival Time: 15:59 Admit Source: Emergency Insurance Payor: Medicare, department Private health insurance Room #: D.2128 [facility] #: [id number] Height (in.): 75.98 BSA: 2.43 (m2) Height (cm.): 193 BMI: 30.34 (kg/m2) Weight (lbs.): 249.12 Weight (kg.): 113 Lab Results Lab Result Date: 07/17/2019 Lab Result Time: 0:00 Biochemistry Name Units Result Min Max BUN mg/dl 25 --(----)-* 7 18 Creatinine mg/dl 0.9 --(-*--)-- 0.6 1.3 CBC Name Units Result Min Max Hemoglobin g/dl 15.7 --(--*-)-- 13.5 17.5 Procedure Procedure Types Cath Procedure Diagnostic Procedure [facility] w/Coronaries Sedation Charges Moderate Sedation up to 15 minutes PCI Procedure Coronary Stent Coronary Stent Initial Procedure Description Procedure Date Procedure Date: 07/23/2019 Procedure Start Time: 8:30 Procedure End Time: 8:58 Procedure Staff Name Function Marcial Nam MD Performing Physician Rekha Genao RT Monitor Dhara Lyles RT Monitor Zamzam Acevedo RT Scrub Farhad Dia RN Nurse Procedure Data Cath Procedure Fluoroscopy Diagnostic fluoroscopy Total fluoroscopy Time: 8.5 time: 8.5 min min Diagnostic fluoroscopy Total fluoroscopy dose: 916 dose: 916 mGy mGy Contrast Material Contrast Material Type Amount (ml) Isovue 300 107 Entry Location Entry Primary Successful Side Size Upsize Upsize Entry Closure Succes sful Closure Location (Fr) 1 (Fr) 2 (Fr) Remarks Device Remarks Femoral Right 6 Fr Exoseal artery Short Estimated blood loss: 10 ml Diagnostic catheters Device Type Used For End Catheter Placement MULTIPACK Pigtail 5 Fr LV Angiography catheter MULTIPACK JL 4.0 5Fr Left Coronary catheter Angiography MULTIPACK 3DRC 5Fr Right Coronary catheter Angiography Procedure Complications No complications Procedure Medications Medication Administration Route Dosage Oxygen etCO2 Nasal cannula 2 l/min Lidocaine 2% added to field 20 Heparin Flush Bag added to field 2 bags (1000units/500ml NS) 0.9% NaCl I.V. 100 ml/hr Plavix P.O. 75 mg Benadryl I.V. 50 mg Versed I.V. 2 mg Fentanyl 100 mcg Heparin Bolus I.V. 4000 units Versed I.V. 2 mg Versed I.V. 2 mg Hemodynamics Rest BSA: 2.43 (m2) HGB: 15.7 (g/dl) O2 Consumption: Estimated: 269.73 (ml/min) O2 Co nsumption indexed: Estimated:111 (ml/min/m) Heart Rate: 63 (bpm) Snapshots Pre Cath Intra NCS Post Cath Vital Signs Time Heart Resp SPO2 etCO2 NIBP (mmHg) Rhythm Pain Sedation Rate (ipm) (%) (mmHg) Status Level (bpm) 8:19:02 52 13 97 35.3 168/69(137) SB 0 (11) 10(A) , No pain 8:23:18 65 10 86 0 134/81(93) SB 0 (11) 10(A) , No pain 8:27:42 48 19 99 0.7 137/66(104) SB 0 (11) 10(A) , No pain 8:32:11 50 11 100 0 117/59(88) SB 0 (11) 9(A) , No pain 8:36:19 60 19 96 0 113/73(94) SB 0 (11) 9(A) , No pain 8:40:37 59 11 99 27 123/62(94) SB 0 (11) 9(A) , No pain 8:45:01 54 10 99 31.5 118/55(73) SB 0 (11) 9(A) , No pain 8:49:19 55 11 98 24.8 119/62(90) SB 0 (11) 9(A) , No pain 8:54:27 51 12 100 15 127/67(99) SB 0 (11) 10(A) , No pain Medications Time Medication Route Dose Verified Delivered Reason Notes Effectiveness by by 8:10:58 Plavix P.O. 75 mg Marcial Buffie for Last Cyril Dia RN antiplatelet dose therapy taken was pm dose on 07/21 8:15:32 Oxygen etCO2 2 Marcial Buffie used for Nasal l/min Cyril Dia RN procedure cannula 8:15:40 Lidocaine 2% added 20ml Marcial Marcial for local to vial Cyril Nam MD anesthetic field 8:15:46 Heparin Flush added 2 Marcial Marcial used for Bag to bags Cyril Nam MD procedure (1000units/500ml field NS) 8:15:54 0.9% NaCl I.V. 100 Marcial Buffie Per physician ml/hr Cyril Dia RN 8:20:07 Benadryl I.V. 50 mg Marcial Buffie Per physician Cyril Dia RN 8:27:28 Versed I.V. 2 mg Marcial Buffie for sedation Cyril Dia RN 8:27:34 Fentanyl 100 Marcial Buffie mcg Cyril Dia RN 8:34:11 Versed I.V. 2 mg Marcial Buffie for sedation Cyril Dia RN 8:36:12 Heparin Bolus I.V. 4000 Marcial Buffie for verifi ed units Cyril Dia RN anticoagulation with dr nam 8:55:34 Versed I.V. 2 mg Marcial Buffie for sedation Cyril Dia RN Procedure Log Time Note 8:03:36 Informed consent obtained and on chart 8:03:49 Diagnostic Cath Status : Elective 8:04:15 Admit Source: Emergency department 8:04:22 Arrival Date: 07/22/2019 3:59:00 PM 8:05:43 Farhad Dia RN sent for patient. Start room use. 8:05:45 Insurance Payor : Private health insurance, Medicare 8:06:13 Patient Height : 75.98 inches 8:06:17 Patient Weight : 249.12 lbs 8:10:58 Plavix 75 mg P.O. was administered by Farhad Dia RN; for antiplatelet therapy; Last dose taken was pm dose on 07/21 Verbal order read back and verified. 8:13:04 Time tracking: Regular hours (M-F 7:00 - 5:00) 8:13:13 Plan of Care:Hemodynamics will remain stable., Cardiac rhythm will remain stable., Comfort level will be maintained., Respiratory function will remain adequate., Patient/ family verbilizes understanding of procedure., Procedure tolerated without complication., Recovers from procedure without complications.. 8:13:34 Patient received from Med II to CCL 1 Alert and oriented. Tansferred to table in Supine position. 8:13:37 Warm blankets applied, and sylvia hugger turned on for patient comfort. 8:13:37 Correct patient and procedure confirmed by team. 8:13:38 ECG and BP/O2 sat monitors applied to patient. 8:15:18 Patient NPO since Midnight. 8:15:32 Oxygen 2 l/min etCO2 Nasal cannula was administered by Farhad Dia RN; used for procedure; Verbal order read back and verified. 8:15:34 Patient allergic to Other allergyNICIAN 8:15:38 Is the patient allergic to Iodine/contrast media? No. 8:15:40 Lidocaine 2% 20ml vial added to field was administered by Marcial Nam MD; for local anesthetic; Verbal order read back and verified. 8:15:43 Was the patient premedicated? Yes 8:15:46 Heparin Flush Bag (1000units/500ml NS) 2 bags added to field was administered by Marcial Nam MD; used for procedure; Verbal order read back and verified. 8:15:46 Is patient on blood thinner?Yes 8:15:54 0.9% NaCl 100 ml/hr I.V. was administered by Farhad Dia RN; Per physician; Verbal order read back and verified. 8:15:54 ACC The patient was administered the following blood thiners within the last 24 hours: ACCPlavix 8:17:41 Vital chart was started 8:17:46 Full Disclosure recording started 8:17:51 H&P Date Dictated: 07/23/2019 Within 30 days and on chart.. 8:17:54 Pre-procedure instructions explained to patient. 8:17:55 Pre-op teaching completed and patient verbalized understanding. 8:18:30 Family unavailable. 8:18:56 Patient diabetic? No. 8:18:59 8:19:00 ----Pre-sedation anethsthesia assessment.---- 8:19:04 Previous problem with sedation/anesthesia? No ? 8:19:09 Snore? Yes 8:19:11 Sleep apnea? No 8:19:13 Deviated septum? No 8:19:15 Opens mouth fully? Yes 8:19:16 Sticks out tongue? Yes 8:19:21 Airway obstruction? No ? 8:19:32 Dentures? Yes BOTTOM IN TIGHT 8:20:01 Pre procedure: right dorsailis pedis pulse 2+ Normal; easily identifiable; not easily obliterated 8:20:07 Benadryl 50 mg I.V. was administered by Farhad Dia RN; Per physician; Verbal order read back and verified. 8:20:33 Patient pain scale 1/10 ?. 8:20:55 IV patent on arrival in left forearm with 0.9% NaCl at [facility]. 8:21:18 Lab results completed and on chart. 8:21:25 Risk of Mortality: 1.9 8:21:29 Risk of blood transfusion: 5.5 8:21:59 Risk of MACK: 5.2 8:22:03 Right groin area was prepped with chlora-prep and draped in sterile fashion 8:22:05 Alarms reviewed by R. N. 8:22:06 Sharps counted by scrub and verified by R.N. 8:22:18 Baseline sample Acquired. 8:22:23 Rhythm: sinus rhythm 8:23:30 Use device set Femoral Dx 8:23:31 ACIST Syringe (40464) opened to sterile field. 8:23:32 Bag Decanter (2002S) opened to sterile field. 8:23:33 Medline Cath Pack ([id number]) opened to sterile field. 8:23:36 ACIST Hand Control (12603) opened to sterile field. 8:23:38 ACIST Manifold (25594) opened to sterile field. 8:23:40 Tegaderm 4 x 4 (1626W) opened to sterile field. 8:23:42 SHEATH 5FR Monroe (WNR574) opened to sterile field. 8:23:43 EMERALD Guide Wire (502-282) opened to sterile field. 8:24:02 DIAGNOSTIC Multipack 5Fr catheter set (KI9439) opened to sterile field. 8:24:20 INFLATOR Merit BasixCompak (FV3468) opened to sterile field. 8:24:34 CHOICE PT Extra Support 182cm wire ([id number]) opened to sterile field. 8:24:45 SHEATH 6FR Monroe (XHL260) opened to sterile field. 8:26:22 Physician arrived 8:26:23 --------ALL STOP TIME OUT------ 8:26:24 Final Timeout: patient, procedure, and site verified with staff and physician. All members of the team are in agreement. 8:26:27 Right groin site verified by team. 8:26:35 Fire Safety Assessment: A--An alcohol-based skin anteseptic being used preoperatively., C--Open oxygen or nitrous oxide is being used., D--An ESU, laser, or fiber-optic light is being used. 8:26:41 Physical assessment completed. ASA score P 3 - A patient with severe systemic disease as per Marcial Nam MD. 8:26:47 2) 60-89 Mildly reduced kidney function, and other findings (as for stage 1) point to kidney disease. 8:26:53 Maximum allowable contrast dose (3.7 X eGFR X 0.75)189 ml. 8:27:00 Sedation plan: IV Moderate Sedation Medication:Versed, Fentanyl 8:27:28 Versed 2 mg I.V. was administered by Farhad Dia RN; for sedation; Verbal order read back and verified. 8:27:34 Fentanyl 100 mcg was administered by Farhad Dia RN; ; Verbal order read back and verified. 8:30:25 Zero performed for pressure channel P1 8:30:37 Procedure started. 8:30:49 Local anesthetic to right femoral artery with Lidocaine 2% by Marcial Nam MD.INITIAL ACCESS ONLY 8:31:39 Use device set Multipack Set 8:31:46 DIAGNOSTIC Multipack 5Fr catheter set (YY0035) opened to sterile field. 8:32:16 A 6 Fr Short sheath was inserted into the Right Femoral artery 8:32:43 A MULTIPACK Pigtail 5 Fr catheter was advanced over the wire and used for LV Angiography. 8:32:54 LV gram done using FLETCHER 8:33:28 EF : 50 % 8:33:37 Injector settings: Ml/sec: 10, Volume: 20, 8:33:40 Catheter removed. 8:33:46 A MULTIPACK JL 4.0 5Fr catheter was advanced over the wire and used for Left Coronary Angiography. 8:34:00 LCA angiography performed. 8:34:11 Versed 2 mg I.V. was administered by Farhad Dia RN; for sedation; Verbal order read back and verified. 8:34:28 Injector settings: Ml/sec: 3, Volume: 6, 8:35:08 Catheter removed. 8:35:34 A MULTIPACK 3DRC 5Fr catheter was advanced over the wire and used for Right Coronary Angiography. 8:35:59 RCA angiography performed. 8:36:08 Injector settings: Ml/sec: 3, Volume: 6, 8:36:12 Heparin Bolus 4000 units I.V. was administered by Farhad Dia RN; for anticoagulation; verified with dr nam Verbal order read back and verified. 8:36:27 GUIDE 6FR XBLAD 3.5 catheter ([id number]) opened to sterile field. 8:36:29 Catheter removed. 8:36:47 6 Fr XBLAD3.5 guide catheter was inserted over the wire 8:38:19 Guide catheter removed. 8:38:25 GUIDE 6FR XBLAD 4.0 catheter ([id number]) opened to sterile field. 8:38:45 6 Fr XBLAD4 guide catheter was inserted over the wire 8:41:14 CHOICE PT wire advanced. 8:42:23 Wire removed. 8:42:38 CHOICE PT Extra Support J 300cm guide wire ([id number]) opened to sterile field. 8:43:07 SuperCross Microcatheter 90 angle (5304) opened to sterile field. 8:43:52 SUPERCROSS AND CHOICE 300 ADVANCED. 8:45:58 Wire advanced across lesion. 8:46:20 SUPERCROSS IS REMOVED OVER WIRE. 8:46:50 Pre PCI Site: [place] Diag1 has 90% stenosis. 8:48:56 Inflate balloon Inflation number: 1 A EUPHORA 2.0 x 12 Balloon ([id number]) was prepped and advanced across the 1st Diag , then inflated to 21 DEON for 0:10 (min:sec) . 8:49:10 Inflation number: 2 The EUPHORA 2.0 x 12 Balloon ([id number]) was reinflated across the 1st Diag , to 21 DEON for 0:00 (min:sec) . 8:49:24 Balloon removed over the wire. 8:51:06 Place stent Inflation Number: 3 A FIONA RX 2.5 x 08 stent ([id number]) was prepped and advanced across the 1st Diag . The stent was deployed at 13 DEON for 0:10 (min:sec) . 8:51:52 Stent catheter was removed intact over wire. 8:51:59 Wire removed. 8:52:01 Guide catheter removed. 8:52:18 Post PCI Site: [place] Diag1 has 0% stenosis. 8:52:25 ACT drawn and resulted at 298 seconds. (normal therapeutic range 180-240 seconds). 8:52:38 EXOSEAL 6Fr (EX600) opened to sterile field. 8:52:55 Sheath removed intact; hemostasis achieved with Exoseal to the Right Femoral artery. 8:53:05 Procedure ended.(Physican Out) 8:53:14 Contrast amount:Isovue 300 107ml. 8:53:18 Maximum allowable dose exceeded? No. 8:54:18 Fluoroscopy time 08.50 minutes. 8:54:26 Flurop Dose total: 916 8:54:26 Fluoroscopy dose: 916 mGy 8:54:34 Dose Area Product 81396 mGy/cm. 8:54:37 Sharps counted by scrub and verified by R.N. 8:54:40 Insertion/operative site no bleeding no hematoma. 8:54:46 Post-op/insertion site Right Femoral artery dressed using a 4 x 4 and Tegaderm. 8:54:51 Post right femoral artery:stable 8:54:57 Post Procedure Pulses reassessed and unchanged 8:55:02 Post-procedure physical assessment completed. ASA score P 3 - A patient with severe systemic disease as per Marcial Nam MD. 8:55:08 Post procedure rhythm: unchanged. 8:55:13 Estimated blood loss: 10 ml 8:55:17 Post procedure instruction explained to patient.Patient verbalizes understanding. 8:55:18 Patient needs reinforcement of post procedure teaching. 8:55:34 Versed 2 mg I.V. was administered by Farhad Dia RN; for sedation; Verbal order read back and verified. 8:55:36 Procedure type changed to Cath procedure, Diagnostic procedure, LHC, [facility] w/Coronaries, Sedation Charges, Moderate Sedation up to 15 minutes, PCI procedure, Coronary Stent, Coronary Stent Initial 8:56:19 Procedure and supply charges have been captured, reviewed, submitted and are correct. 8:57:37 Procedure Complication : No complications 8:57:41 Vital chart was stopped 8:57:45 [facility] Findings: MVD- PCI performed (see procedure note) 8:57:50 Operative report dictated upon procedure completion. 8:57:51 See physician's report for complete and final results. 8:57:55 Report given to [facility]. 8:58:00 Patient transfered to [facility] with Bed. 8:58:04 Procedure ended. 8:58:04 Full Disclosure recording stopped 8:58:33 ACC-PCI Only Patient was given prescriptions, or instructed by Marcial Nam MD to start/continue the following medications upon discharge: Plavix 8:58:35 End room use (Document Last) Intervention Summary Intervention Notes Time ActionType Lesion and Equipment Used Action# Pressure Duration Attributes 8:48:56 Inflate 1st Diag EUPHORA 2.0 x 1 21 00:10 balloon 12 Balloon ([id number]) 8:49:10 Reinflate 1st Diag EUPHORA 2.0 x 2 21 00:00 balloon 12 Balloon ([id number]) 8:51:06 Place stent 1st Diag FIONA RX 2.5 x 3 13 00:10 08 stent ([id number]) Device Usage Item Name Manufacture Quantity Catalog Number Hospital Part Current M inimal Lot# / Charge Number Stock Stock Serial# Code ACIST Syringe Acist 1 76480 976598 532548 089027 2 0 (61613) Medical Systems Inc Bag Decanter Microtek 1 185909 84418 128132 5 () Medical Inc. Medline Cath Medline 1 [id number] 359502 18753 074043 5 Pack ([id number]) ACIST Hand Acist 1 80321 898634 478622 726988 5 Control Medical (08362) Systems Inc ACIST Manifold Acist 1 80782 975161 694798 174607 5 (80285) Medical Systems Inc Tegaderm 4 x 4 3M 1 1626W 160839 906692 686932 5 (1626W) SHEATH 5FR Terumo 1 UEI806 228554 279327 077798 5 Monroe (VLR463) EMERALD Guide Cardinal 1 502-455 043839 856624 653080 5 Wire (502-455) Health DIAGNOSTIC Cardinal 2 YL7760 368255 03043 235708 3 0 Multipack 5Fr Health catheter set (KC8643) INFLATOR Merit Merit 1 UP4195 973075 275909 775319 1 5 ActiviomicsnhVenture Incite (TM9304) CHOICE PT [place] 1 [id number] 483992 301275 723438 5 Extra Support Scientific 182cm wire (3566153I2) SHEATH 6FR Terumo 1 KCJ683 360200 487134 648911 4 0 Monroe (LWN843) MULTIPACK Cardinal 1 974212 5 Pigtail 5 Fr Health catheter MULTIPACK JL Cardinal 1 255253 5 4.0 5Fr Health catheter MULTIPACK 3DRC Cardinal 1 974967 5 5Fr catheter Health GUIDE 6FR Cardinal 1 00926728 489594 055933 046162 1 0 XBLAD 3.5 Health catheter (26281518) GUIDE 6FR Cardinal 1 62225992 827705 467492 468114 3 XBLAD 4.0 Health catheter (30674482) CHOICE PT [place] 1 [id number] 556441 175178 621260 5 Extra Support Scientific J 300cm guide wire (4750530R0) SuperCross Vascular 1 5304 860261 821763 028603 5 Microcatheter Solutions 90 angle (5304) EUPHORA 2.0 x Medtronic 1 [id number] 462845 155001 582418 5 [id number] 12 Balloon (MED7207L) FIONA RX 2.5 x Medtronic 1 [id number] 642967 7229312 100071 5 [id number] 08 stent ([id number]) EXOSEAL 6Fr Cardinal 1 EX600 933887 124661 897213 1 0 (EX600) Health Signature Audit [place] Stage Time Signature Unsigned Intra-Procedure 07/23/2019 Dhara 9:00:08 AM Rafal RT(R) (CV) Intra-Procedure 07/23/2019 Farhad Dia RN 9:01:01 AM Intra-Procedure 07/23/2019 Marcial Nam 9:01:31 AM [facility] [address] [place] [address]
[~2019-07-22 14:47] MED LIST changes: +COZAAR50 MG PO; +VITAMIN B-12500 MCG PO
[2019-07-22 15:04] LABS: BASOPHILS 0.6 % (0-2); EOSINOPHILS 4.5 % (0-7); HEMATOCRIT 48.2 % (42.0-54.0); HEMOGLOBIN 16.3 g/dL (13.5-17.5); IMMATURE GRANULOCYTES 0.2 % (0-5); LYMPHOCYTES 23.7 % (15-50); MCH 31.3 pg (26.0-34.0); MCHC 33.8 g/dL (31.0-37.0); MCV 92.5 fL (80.0-100.0); MEAN PLATELET VOLUME 11.4 fL (7.4-10.4); MONOCYTES 9.3 % (2-11); NEUTROPHILS 61.7 % (40-80); PLATELET COUNT 233 10x3/uL (130-400); RBC 5.21 10x6/uL (4.20-6.10); RDW 13.8 % (11.5-14.5); WBC 8.2 10x3/uL (4.8-10.8)
[2019-07-22 15:14] LABS: APTT 29.5 SECONDS (22.8-39.4); INR 1.03 (0.85-1.17)
[2019-07-22 15:15] LABS: CALC OSMOLALITY 284 mosm/kg (275-300); CALCIUM 8.3 mg/dL (8.5-10.1); CARBON DIOXIDE 25.8 mmol/L (21.0-32.0); CHLORIDE - SERUM 107 mmol/L (98-107); CREATININE - SERUM 1.1 mg/dL (0.6-1.3); POTASSIUM - SERUM 4.8 mmol/L (3.5-5.1); SODIUM 140 mmol/L (136-145); UREA NITROGEN 24 mg/dL (7-18); eGFR NON AFRICAN AMERICAN 68 mL/min (90-120)
[2019-07-22 15:16] VITALS: BP 124/73
[2019-07-22 15:21] LABS: GLUCOSE 139 mg/dL (74-106)
[2019-07-22 15:32] LABS: ALBUMIN 3.5 g/dL (3.4-5.0); ALKALINE PHOSPHATASE 58 U/L (46-116); ALT (SGPT) 43 U/L (10-68); BILIRUBIN - TOTAL 0.77 mg/dL (0.2-1.3); CKMB 17.7 U/L (0.0-3.6); CREATINE KINASE 467 UL (21-232); MAGNESIUM - SERUM 1.8 mg/dL (1.8-2.4); PROTEIN - SERUM 7.5 g/dL (6.4-8.2); TROPONIN-I 0.039 ng/mL (0.000-0.060)
[2019-07-22 17:50] VITALS: BP 129/65
--- NOTE | 2019-07-22 18:15 | NUR ---
PT TO ROOM FROM ER VIA WHEELCHAIR. AT BEDSIDE. SCDS APPLIED. TELEMETRY IN USE. DENIES CHEST PAIN AT PRESENT. VOIDED IN BATHROOM. VITALS STABLE, PT WITHOUT COMPLAINTS AT PRESENT.
--- NOTE | 2019-07-22 19:20 | NUR ---
RECEIVED REPORT, WILL ASSUME CARE OF PT, ASKING FOR SOMETHING TO EAT, PROVIDED A SANDWICH AND A DRINK, BED IS LOW, SRX2, CALL LIGHT IN REACH, WILL CONTINUE PLAN OF CARE
[2019-07-22 19:39] LABS: CKMB 17.5 U/L (0.0-3.6); CREATINE KINASE 390 UL (21-232)
[2019-07-22 19:41] LABS: TROPONIN-I 0.746 ng/mL (0.000-0.060)
--- NOTE | 2019-07-22 19:59 | NUR ---
NOTIFIED DR. ZUNIGA THAT PT TROPIN WAS NOW 0.746
[2019-07-22 20:00] VITALS: BP 121/62
[2019-07-23 00:23] VITALS: BP 121/53
[2019-07-23 02:05] LABS: CKMB 16.8 U/L (0.0-3.6); CREATINE KINASE 343 UL (21-232)
--- NOTE | 2019-07-23 02:55 | NUR ---
I have reviewed this patient and I concur with the Shift Assessment completed by the Licensed Practical Nurse today this shift.
[2019-07-23 04:00] VITALS: BP 104/53
[2019-07-23 08:07] VITALS: Ht 193 cm; Wt 113.4 kg
--- NOTE | 2019-07-23 09:24 | NUR ---
ARRIVE BACK TO ROOM FROM [employer] OFFICER. SEDATED, AROUSES TO STIMULI. BP-125/60, HR-47 SINUS MAYKEL, O2-99% 2L NC. NS INFUSING ORDERED. RT GROIN DRESSING CLEAN DRY INTACT. FREE FROM HEMATOMA. FREE FROM BLEEDING. PULSE +2 BILATERALLY. DENIES ANY NEEDS. CONTINUE PLAN OF CARE AND SAFETY PRECAUTIONS.
--- NOTE | 2019-07-23 11:23 | NUR ---
PRAVACHOL 20 MG # 30 WITH 11 REFILLS CALLED TO [facility], SPOKE WITH SELWYN.
[2019-07-23] MEDS ORDERED: PRAVASTATIN SOD10 MG PO (11:25)
[2019-07-23 13:09] VITALS: BP 133/64
--- NOTE | 2019-07-23 14:28 | NUR ---
ALERT AND ORIENTED X4. SITTING UP IN BED. FAMILY AT BEDSIDE. DC LT WRIST IV TIP INTACT. DC LT AC IV TIP INTACT. DISCHARGE INSTRUCTIONS GIVEN VERBALLY AND WRITTEN. DISCHARGE PAPERS SIGNED ON CHART. ESCORT TO RIDE VIA WHEELCHAIR. REMAINS FREE FROM INJURY.
--- NOTE | 2019-07-24 08:58 | MORECARE ---
CASE MANAGEMENT DISCHARGE SUMMARY PATIENT: DOM ACOSTA UNIT: [id number] ADM DATE: 07/22/19 AGE: 84 : 36 SEX: M ROOM/BED: D.3428 AUTHOR: PEDRO FIGUEROA PHYSICIAN: REFERRING PHYSICIAN: JESUS ZUNIGA MD DATE OF SERVICE: 07/24/19 Discharge Plan Patient Name: DOM [facility]COSTA [facility] [facility] 1935 Planned Disposition: Home Anticipated Discharge Date: 07/23/19 Discharge Date: 07/23/2019 Expected LOS: 1 Initial Reviewer: [email or web address] Initial Review Date: 07/24/2019 Generated: 07/24/19 9:58 am Coverage Notice Reviewer: [email or web address] Carson Fuentes Notice Issued Date-Time: 07/22/2019 16:30 Notice Type: Medicare Outpatient Observation Notice Notice Delivered To: Patient Relationship to Patient: Self Adhesive Bandage Making Operator Name: Dom Acosta Delivery Method: HAND - Hand Delivered Sandra Days: Prior Verbal Notification: Recipient Understood Notice: Yes Recipient Signature: Yes Med Rec Note Co-signed by Attending: Coverage Notice Comment: MORA delivered to and signed by patient. Original to patient and also placed in chart. Patient Name: DOM ACOSTA Page [phone] at 0858 All edits/amendments must be made on the electronic document DICTATION DATE: 07/24/19857 INVENTORY SPECIALIST MANAGER: JUWAN 07/24/19 0858 RPT#: [id number] DC DATE:07/23/19 STATUS: DIS IN [facility] [address] [place] [address] END OF REPORT
--- NOTE | 2019-07-25 14:07 | HP ---
PATIENT: ROMEL ACOSTA MEDICAL RECORD: [id number] ACCOUNT: [id number] LOCATION:[address] : 37 ADMISSION DATE: 07/22/19 PCP: THIERNO LEE MD HISTORY AND PHYSICAL EXAMINATION DIAGNOSES: 1. Myocardial infarction. 2. Coronary artery disease. 3. Recent percutaneous transluminal coronary angioplasty stent left anterior descending. 4. Hypertension. 5. Hyperlipidemia. HISTORY OF PRESENT ILLNESS: Mr. Acosta presents with anginal symptomatology. He presented last week with angina. Catheterization by Dr. Corona, underwent PTCA stent of the LAD. He did well until last night. He got severe chest pain with diaphoresis, shortness of breath. His troponin is positive for myocardial infarction and now he has ST elevation and this is a change on his EKG. PHYSICAL EXAMINATION: CONSTITUTIONAL/GENERAL APPEARANCE: Well nourished, well developed, appears stated age. EYES: Lids and conjunctivae noninjected. No discharge. No pallor. ENT: Lips within normal limit. No cyanosis. No pallor. NECK: Carotid arteries, bilateral normal upstroke. No bruits. No thrills. No jugular venous pressure or distention. CERVICAL LYMPH NODES: Nontender. Nonenlarged. THYROID: Not enlarged. No nodules. CARDIOVASCULAR: Precordial exam, nondisplaced. No heaves or pericardial thrills. Rate and rhythm, regular. Heart sounds, normal S1, normal S2. No S3, no gallop, no rub. Systolic murmur, not heard. Diastolic murmur, not heard. RESPIRATORY: Respiratory effort, unlabored. Normal curvature. No thoracic deformity. No chest wall tenderness. Percussion, resonant. Auscultation, clear. No wheezes, no rales, no rhonchi. ABDOMEN: Soft, nondistended, nontender. No abdominal pain, no vomiting and normal appetite. MUSCULOSKELETAL: No joint tenderness, normal gait, normal tone. SKIN: Warm and dry. OVERALL IMPRESSION: Myocardial infarction in conjunction with recent stenting, now with EKG changes and ST elevation. We will proceed with emergent coronary angiography. Further care depends upon findings of the angiography. TRANSINT:[id number] Voice Confirmation ID: [id number] DOCUMENT ID: [id number] HISTORY AND PHYSICAL [id number] ROMEL ACOSTA JESUS ZUNIGA MD at 1407 CC: [id number] DICTATION DATE: 07/23/1908 CREDIT CASHIER: 07/23/1927 DIS IN 07/23/19 [place] [id number] [place] [address]
--- NOTE | 2019-07-25 14:07 | OP ---
PATIENT NAME: ROMEL MOARN MEDICAL RECORD: [id number] :37 LOCATION:D.M2 D.2128 ADMISSION DATE:07/22/19 SURGEON: JESUS ZUNIGA MD DATE OF OPERATION: 07/23/2019 PROCEDURES: 1. PTCA stent LAD diagonal. 2. Left heart catheterization. 3. Selective coronary angiography. 4. Left ventriculogram. INDICATION: Non-Q-wave myocardial infarction. PROCEDURE IN DETAIL: After informed consent was obtained and after a detailed description of risks, benefits as well as alternative therapies, the patient elected to proceed with angiogram and angioplasty. The right femoral area was prepped and draped in normal sterile fashion. Right femoral artery was cannulated via modified Seldinger technique with placement of 6-Palauan sheath. All catheters exchanged through this sheath. FINDINGS: Left ventriculogram was performed in standard 30-degree FLETCHER view, reveals preserved cardiac wall motion, ejection fraction 50%. SELECTIVE CORONARY ANGIOGRAPHY: 1. Left main is with no significant angiographic disease. 2. Left anterior descending has previously placed stent. This is widely patent with no significant thrombosis. However, there is a relatively large diagonal system that takes off right at the stented area that is 95% to 99% stenosed. 3. The left circumflex has mild irregularities, no flow-limiting stenosis. Previously placed stent is widely patent. 4. Right coronary artery has mild irregularities, but no flow-limiting stenosis present. PTCA STENT OF THE LAD DIAGONAL: The stent used was a 2.5 x 8 mm Jeff. Result was 0% residual stenosis. OVERALL IMPRESSION: Successful percutaneous transluminal coronary angioplasty stent of the left anterior descending diagonal going from 95% to 99% initial stenosis to 0% residual. TRANSINT:[id number] Voice Confirmation ID: [id number] DOCUMENT ID: [id number] JESUS ZUNIGA MD at 1407 CC: [id number] DICTATION DATE: 07/23/19 0856 SKIP TENDER: 07/23/19 0941 DIS IN 07/23/19 [id number] [place] [address]
--- NOTE | 2019-07-25 14:08 | EC ---
PATIENT:ROMEL MORAN DATE OF SERVICE: 07/22/19 SEX: M MEDICAL RECORD: [id number] DATE OF : 37 LOCATION:D.M2 D.212 AGE OF PATIENT: 84 ADMISSION DATE: 07/22/19 REFERRING PHYSICIAN: INTERPRETING PHYSICIAN: JESUS NAM MD ECHOCARDIOGRAM REPORT ECHO CHARGES 4 ECHO COMPLETE Date: 07/23/19 CLINICAL DIAGNOSIS: [place] ECHOCARDIOGRAPHIC MEASUREMENTS (adult normal given) AC root (d.<3.7cm) 3.4 cm LV Septum d (<1.2 cm> 0.9 cm Valve Excursion 2.0 cm LV Septum (systole) 1.3 cm Left Atria (s.<4.0cm> 4.3 cm LVPW d(<1.2cm) 1.1 cm RV (d.<2.3cm) 3.1 cm LVPW (sytole) 1.4 cm LV diastole(<5.6CM) 6.1 cm MV E-F(>70mm/sec) cm LV systole 5.2 cm LVOT Diameter 2.6 cm MV exc.(>10mm) cm Est.ejection fraction (50-75%) % DOPPLER: LVIT cm/sec A 39 cm/sec E 70 cm/sec LA cm/sec RVSP 17.5 mmHg LVOT 88 cm/sec AOP1/2T m/s Asc. Ao 135 cm/sec RVOT 74 cm/sec RA cm/sec PA 68 cm/sec AV Gradient Peak 7.3 mmHg AV Mean 5.0 mmHg AV Area 3.5 cm MV Gradient Peak 2.0 mmHg MV Mean 0.9 mmHg MV Area cm COMMENTS: Manager Staffing: Ayush [facility] Hand Etcher Helper: 1 Dr. Nam TAPE# PACS Pericardial Effusion Y DATE OF SERVICE: FINDINGS: 1. Left ventricular chamber size is mildly dilated. Left ventricular systolic function is preserved at 55%. 2. Left atrium is enlarged at 4.3 cm. Right atrium and right ventricular chamber sizes are within normal limits. 3. Valvular structures have normal structure and motion. 4. Doppler interrogation reveals no significant valvular insufficiency or stenosis, and pulmonary systolic pressure estimated at 17 mmHg. ECHOCARDIOGRAM REPORT [id number] ROMEL MORAN 5. No evidence of pericardial effusion or left ventricular thrombus. TRANSINT:[id number] Voice Confirmation ID: [id number] DOCUMENT ID: [id number] JESUS NAM MD at 1408 CC: [id number] DICTATION DATE: 07/23/191753 [employer] TEACHER: 07/24/19 0149 DIS IN 07/23/19 [facility] [address] [place] [address]
--- NOTE | 2019-07-25 14:08 | DS ---
PATIENT:ROMEL ACOSTA :37 MEDICAL RECORD: [id number] DISCHARGE SUMMARY ADMISSION DATE: 07/22/19 DISCHARGE DATE: 07/23/19 DIAGNOSES: 1. Angina. 2. Coronary artery disease. 3. PTCA and stent of LAD, diagonal this admission. 4. Hypertension. 5. Hyperlipidemia. HOSPITAL COURSE: Mr. Acosta presented with unstable anginal symptomatology, found to have significant disease of the LAD, diagonal. Underwent successful PTCA and stent of this territory with no further anginal chest discomfort. Discharged home with the addition of Pravachol, continuing his Plavix. He will follow up with [facility] as previously scheduled. TRANSINT:[id number] Voice Confirmation ID: [id number] DOCUMENT ID: [id number] JESUS ZUNIGA MD at 1408 CC: [id number] DICTATION DATE: 07/23/19 1046 DRAW FRAME OPERATOR: 07/24/19 0155 DIS IN 07/23/19 [id number] [place] [address]
== END 2019-07-23 14:46 | disposition home or self-care (01) ==
LOC: D.ER 14:47 → D.M2 15:59 → OBSVTIME 16:30 → D.M2 07-23 14:46
PROVIDERS: Emergency Medicine; ADMIT Internal Medicine Interventional Cardiology; ATTEND Internal Medicine Interventional Cardiology
DX: I25.119 Atherosclerotic heart disease of native coronary artery with unspecified angina pectoris (principal); I10 Essential (primary) hypertension; E78.5 Hyperlipidemia, unspecified; I21.4 Non-ST elevation (NSTEMI) myocardial infarction
CPT/HCPCS: 93458; C9600

== ENCOUNTER → 2020-06-10 09:06 | Outpatient (CLI) | payer MEDICARE, BC ==
[~2020-06-10 09:06] MED LIST changes: +PRAVASTATIN SOD10 MG PO
== END | disposition home or self-care (01) ==
LOC: D.HCCARDIO 09:06
PROVIDERS: ATTEND Internal Medicine Cardiovascular Disease
DX: I25.10 Atherosclerotic heart disease of native coronary artery without angina pectoris (principal)